=== PATIENT | female | born 1940 | race Caucasian/White ===

== ENCOUNTER 2017-01-03 09:01 | Outpatient (CLI) | payer MEDICARE ==
--- NOTE | 2017-01-03 09:36 | RAD ---
TWO VIEWS OF THE CHEST: COMPARISON: 04/30/04. HISTORY: Cough. FINDINGS: A single view of the chest shows an enlarged but stable cardiomediastinal silhouette. There is opac ity in the left costophrenic angle which may represent an infiltrate or mass. No right-sided infilt rates are seen. IMPRESSION: Left lower lobe infiltrate versus mass. A followup chest x-ray is recommended to ensure resolution. POS: [facility]
== END 2017-01-03 09:02 | disposition home or self-care (01) ==
LOC: RAD-FRANK 09:01
PROVIDERS: ATTEND Nurse Practitioner Family
DX: J40 Bronchitis, not specified as acute or chronic (principal)
CPT/HCPCS: 71020

== ENCOUNTER 2017-07-23 10:37 | Outpatient (CLI) | payer MEDICARE ==
--- NOTE | 2017-07-23 12:26 | RAD ---
CHEST TWO VIEWS: HISTORY: Left lower lobe infiltrate. COMPARISON: 01/24/2017 FINDINGS: Two views of the chest show the cardiomediastinal silhouette, which is at the upper limits of normal in size. There is obscurity of the left heart border, but the diaphragm appears preserved. No obvio us infiltrate is seen at this time. This likely represents scarring or atelectasis in the left lung base. IMPRESSION: Left lower lobe atelectasis versus scarring. POS: [facility]
== END 2017-07-23 10:38 | disposition home or self-care (01) ==
LOC: RAD-FRANK 10:37
PROVIDERS: ATTEND Nurse Practitioner Family
DX: R91.8 Other nonspecific abnormal finding of lung field (principal)
CPT/HCPCS: 71046

== ENCOUNTER 2018-01-20 10:31 | Outpatient (CLI) | payer MEDICARE ==
--- NOTE | 2018-01-20 11:49 | RAD ---
PA AND LATERAL CHEST RADIOGRAPH: Date: 01-20-18 History: Follow up abnormal chest x-ray. Comparison: 07-23-17 FINDINGS: The most inferior aspect left lateral costophrenic angle is excluded from view. Again noted are linea r increased densities at the left lung base, overall stable from the prior study, which may be relate d to epicardial fat pad at the left lung base. There is a stable small nodular density adjacent to th e left cardiac border at the left lung base. Right lung is clear. Cardiac silhouette and pulmonary va sculature are within normal limits. There are stable wedge shaped compression fracture within the tho racic vertebral body. The degree of height loss is unchanged from the prior study. No other interval change. IMPRESSION: 1. Findings likely related to a combination of mild scarring and cardiac fat pad at the left lung bas e. In addition, there is a small stable nodular density adjacent to the left cardiac border, unchange d from prior study. 2. Stable mild wedge shaped compression fracture of the thoracic vertebral body. POS: [facility]
== END 2018-01-20 10:32 | disposition home or self-care (01) ==
LOC: RAD-FRANK 10:31
PROVIDERS: ATTEND Nurse Practitioner Family
DX: R91.8 Other nonspecific abnormal finding of lung field (principal); J98.4 Other disorders of lung; M48.54XA Collapsed vertebra, not elsewhere classified, thoracic region, initial encounter for fracture
CPT/HCPCS: 71046